=== PATIENT | male | born 1985 | race Two or more races ===

== ENCOUNTER 2020-11-15 01:04 | Emergency (ER) | payer SELFPAY ==
[~2020-11-15] VITALS: Ht 170.2 cm; Wt 77.1 kg
--- NOTE | 2020-11-15 01:10 | NUR ---
pt bibra c/o epigastric pain and burning. Pt aaox4 breathing evenly and unlabored. Pt skin is intact, warm, and dry. Pt denies eating anything out of the ordinary. Pt attached to monitor and pox. 20g rt ac initated. [place] given and call light within reach.
[2020-11-15] MEDS ORDERED: PANTOPRAZOLE 40 MG VIAL ONE (01:16)
[2020-11-15] MEDS ORDERED: MORPHINE SULFATE INJ 4 MG/ML DISP.SYRIN ONE (01:17)
[2020-11-15] MEDS ORDERED: ONDANSETRON HCL/PF 4 MG/2 ML VIAL ONE (01:17)
[2020-11-15] MEDS ORDERED: ONDA4TAB11 PO (01:18)
[2020-11-15] MEDS ORDERED: PANT40TA2 PO (01:18)
--- NOTE | 2020-11-15 01:25 | NUR ---
blood obtained and sent to lab
[2020-11-15 01:29] LABS: BASOPHILS # (AUTO) 0.1 /CMM (0.0-0.2); BASOPHILS % (AUTO) 0.6 % (0.0-2.0); EOSINOPHILS % (AUTO) 3.4 % (0.0-6.0); HEMATOCRIT 45 % (39-51); HEMOGLOBIN 15.3 g/dL (13.5-17.5); LYMPHOCYTES # (AUTO) 4.6 /CMM (0.8-4.8); LYMPHOCYTES % (AUTO) 37.8 % (20.0-44.0); MEAN CORPUSCULAR HGB CONC 34 g/dl (31.0-36.0); MEAN CORPUSCULAR VOLUME 91 fL (80-96); MONOCYTES # (AUTO) 0.6 /CMM (0.1-1.30); MONOCYTES % (AUTO) 4.8 % (2.0-12.0); NEUTROPHILS # (AUTO) 6.5 /CMM (1.8-8.9); NEUTROPHILS % (AUTO) 53.4 % (43.0-81.0); PLATELET COUNT (AUTO) 428 /CMM (150-450); RED BLOOD CELL COUNT(AUTO) 4.94 MIL/uL (4.5-6.0); WHITE BLOOD COUNT (AUTO) 12.2 K/uL (4.3-11.0)
[2020-11-15] MEDS ORDERED: MORPHINE SULFATE INJ 2 MG/ML DISP.SYRIN IV ONE (01:30)
[2020-11-15] MEDS ORDERED: PANTOPRAZOLE 40 MG VIAL IV ONE (01:30)
[2020-11-15] MEDS ORDERED: IV NS 0.9% 1,000 ML BAG IV ONE (01:30)
[2020-11-15] MEDS ORDERED: ONDANSETRON HCL/PF 4 MG/2 ML VIAL IVP ONE (01:30)
[2020-11-15 01:43] LABS: ALBUMIN 4.1 g/dL (3.4-5.0); BILIRUBIN,DIRECT 0.1 mg/dL (0.0-0.2); BILIRUBIN,TOTAL 0.6 mg/dL (0.2-1.0); CALCIUM, SERUM 9.2 mg/dL (8.5-10.1); POTASSIUM 3.5 mmol/L (3.5-5.1); TOTAL PROTEIN, SERUM 8.1 g/dL (6.4-8.2)
--- NOTE | 2020-11-15 05:54 | NUR ---
IV removed. Catheter intact and site benign. Pressure and 4x4 applied to site. No bleeding noted. Patient discharged to home in stable condition. Written and verbal after care instructions given. Patient verbalizes understanding of instruction. Pt aaox4 no acute distress noted, resp even and unlabored.
[2020-11-15 05:56] VITALS: BP 129/67
== END 2020-11-15 05:56 | disposition home or self-care (01) ==
LOC: ER 01:07
DX: R10.13 Epigastric pain (principal); R11.0 Nausea; Z90.49 Acquired absence of other specified parts of digestive tract; Z79.899 Other long term (current) drug therapy
CPT/HCPCS: 36415; 74176; 80048; 80076; 83690; 85025; 96361; 96374; 96375; 99285; C9113; J2270; J2405; J7030

== ENCOUNTER 2020-11-24 00:39 | Emergency (ER) | payer SELFPAY ==
[~2020-11-24] VITALS: Ht 170.2 cm; Wt 77.1 kg
[~2020-11-24 00:39] MED LIST: ONDA4TAB11 PO; PANT40TA2 PO
--- NOTE | 2020-11-24 00:52 | NUR ---
pt bibself c/o pain in the back of his head that radiates to both ears x1day. Pt aaox4 breathing evenly and unlabored. Pt skin warm, dry, and intact. Pt admits to taking tylennol an hour ago without relief. Pt attached to monitor and pox. Pt given blanket and call light within reach
--- NOTE | 2020-11-24 01:28 | NUR ---
returned from ct
[2020-11-24] MEDS ORDERED: CARI350T PO (02:41)
[2020-11-24] MEDS ORDERED: IBUP-1957 PO (02:41)
[2020-11-24] MEDS ORDERED: PRED50TA PO (02:41)
[2020-11-24 02:59] VITALS: BP 125/84
== END 2020-11-24 02:46 | disposition home or self-care (01) ==
LOC: ER 00:42
DX: M62.838 Other muscle spasm (principal); M54.2 Cervicalgia; R51.9 Headache, unspecified; Z90.49 Acquired absence of other specified parts of digestive tract; Z79.899 Other long term (current) drug therapy
CPT/HCPCS: 72125-TC

== ENCOUNTER 2020-12-19 06:14 | Emergency (ER) | payer SELFPAY ==
[~2020-12-19] VITALS: Ht 172.7 cm; Wt 79.8 kg
[~2020-12-19 06:14] MED LIST changes: +CARI350T PO; +IBUP-1957 PO; +PRED50TA PO
[2020-12-19] MEDS ORDERED: PANTOPRAZOLE 40 MG VIAL ONE (06:48)
[2020-12-19] MEDS ORDERED: KETOROLAC TROMETHAMINE 15 MG/ML VIAL ONE (06:48)
--- NOTE | 2020-12-19 06:58 | NUR ---
Patient came in to the er c/o pain in his chest since last night. On room air, breathing evenly and unlabored. Connected to the monitor and pulse ox. kept comfortable, will continue to monitor accordingly.
[2020-12-19 07:00] LABS: BASOPHILS % (AUTO) 0.2 % (0.0-2.0); EOSINOPHILS % (AUTO) 3.3 % (0.0-6.0); HEMATOCRIT 43 % (39-51); HEMOGLOBIN 14.3 g/dL (13.5-17.5); LYMPHOCYTES # (AUTO) 3.2 /CMM (0.8-4.8); LYMPHOCYTES % (AUTO) 24.1 % (20.0-44.0); MEAN CORPUSCULAR HGB CONC 33 g/dl (31.0-36.0); MEAN CORPUSCULAR VOLUME 92 fL (80-96); MONOCYTES # (AUTO) 0.7 /CMM (0.1-1.30); MONOCYTES % (AUTO) 5.1 % (2.0-12.0); NEUTROPHILS # (AUTO) 8.9 /CMM (1.8-8.9); NEUTROPHILS % (AUTO) 67.3 % (43.0-81.0); PLATELET COUNT (AUTO) 428 /CMM (150-450); RED BLOOD CELL COUNT(AUTO) 4.64 MIL/uL (4.5-6.0); WHITE BLOOD COUNT (AUTO) 13.3 K/uL (4.3-11.0)
[2020-12-19] MEDS ORDERED: KETOROLAC TROMETHAMINE INJ 30 MG/ML VIAL IV ONE (07:00)
[2020-12-19] MEDS ORDERED: PANTOPRAZOLE 40 MG VIAL IV ONE (07:00)
[2020-12-19 07:10] LABS: ALBUMIN 3.2 g/dL (3.4-5.0); BILIRUBIN,DIRECT 0.1 mg/dL (0.0-0.2); BILIRUBIN,TOTAL 0.3 mg/dL (0.2-1.0); CALCIUM, SERUM 8.2 mg/dL (8.5-10.1); POTASSIUM 3.9 mmol/L (3.5-5.1); TOTAL PROTEIN, SERUM 6.6 g/dL (6.4-8.2)
[2020-12-19 09:19] VITALS: BP 128/85
--- NOTE | 2020-12-19 09:19 | NUR ---
Patient discharged to home in stable condition. Written and verbal after care instructions given. Patient verbalizes understanding of instruction.
== END 2020-12-19 09:20 | disposition home or self-care (01) ==
LOC: ER 06:14
DX: R10.11 Right upper quadrant pain (principal); R10.13 Epigastric pain; Z90.49 Acquired absence of other specified parts of digestive tract; Z79.899 Other long term (current) drug therapy
CPT/HCPCS: 36415; 74176; 80048; 80076; 83690; 85025; 96374; 96375; 99284; C9113; J1885

== ENCOUNTER 2020-12-28 01:22 | Emergency (ER) | payer SELFPAY ==
--- NOTE | 2020-12-28 01:29 | NUR ---
pt left without being triaged after bib RA
== END 2020-12-28 01:41 | disposition left against medical advice (07) ==
LOC: ER 01:32
DX: Z53.21 Procedure and treatment not carried out due to patient leaving prior to being seen by health care provider (principal); Z90.49 Acquired absence of other specified parts of digestive tract; Z79.899 Other long term (current) drug therapy

== ENCOUNTER 2021-07-20 20:15 | Emergency (ER) | payer OTHER ==
[~2021-07-20] VITALS: Ht 172.7 cm; Wt 80.7 kg
[2021-07-20 20:44] LABS: BILIRUBIN,URINE Negative (NEGATIVE); COLOR,URINE YELLOW (YELLOW); LEUKOCYTE ESTERASE ,URINE Negative (NEGATIVE); NITRITE, URINE Negative (NEGATIVE); PROTEIN,URINE Negative (NEGATIVE); UGLUCOSE Negative (NEGATIVE); UROBILINOGEN,URINE 0.2 EU/dL (0.2)
--- NOTE | 2021-07-20 21:27 | NUR ---
CALLED [facility] REGARDING CT.
--- NOTE | 2021-07-20 22:15 | NUR ---
Patient discharged in stable condition. Written and verbal after care instructions given. Patient verbalizes understanding of instruction. Pt left with [employer]. In custody.
[2021-07-20 22:16] VITALS: BP 122/71
== END 2021-07-20 22:16 ==
LOC: ER 20:17
DX: R10.9 Unspecified abdominal pain (principal); Z90.49 Acquired absence of other specified parts of digestive tract; Z79.899 Other long term (current) drug therapy; Z79.1 Long term (current) use of non-steroidal anti-inflammatories (NSAID)

== ENCOUNTER 2022-02-21 09:50 | Emergency (ER) | payer SELFPAY ==
[~2022-02-21] VITALS: Ht 172.7 cm; Wt 81.6 kg
[2022-02-21 09:58] VITALS: BP 132/89
--- NOTE | 2022-02-21 10:06 | NUR ---
seen and examined by basilio feliciano. pt states he is fine and does not need an xray.
--- NOTE | 2022-02-21 10:22 | NUR ---
Patient discharged to home in stable condition. Written and verbal after care instructions given. Patient verbalizes understanding of instruction.
== END 2022-02-21 10:21 | disposition home or self-care (01) ==
LOC: ER 10:04
DX: F29 Unspecified psychosis not due to a substance or known physiological condition (principal); Z90.49 Acquired absence of other specified parts of digestive tract; Z59.00 Homelessness unspecified; Z79.899 Other long term (current) drug therapy